=== PATIENT | female | born 1970 | race American Indian/Alaskan Native ===

== ENCOUNTER 2017-06-26 15:13 | Emergency (ER) | payer SELFPAY ==
[2017-06-26 16:26] VITALS: BP 149/80
== END 2017-06-26 18:06 | disposition left against medical advice (07) ==
LOC: ED 15:13
DX: M79.89 Other specified soft tissue disorders (principal); Z53.21 Procedure and treatment not carried out due to patient leaving prior to being seen by health care provider

== ENCOUNTER 2017-08-31 20:34 | Emergency (ER) | payer SELFPAY ==
[2017-08-31 21:55] VITALS: BP 146/90
[2017-08-31] MEDS ORDERED: TORADOL IM ONE (22:09)
--- NOTE | 2017-08-31 22:23 | Emergency Department Report ---
ED Back Pain/Injury HPI - General Chief Complaint: Back Pain/Injury Stated Complaint: BACK PAIN Time Seen by Provider: 08/31/17 22:09 Source: patient Limitations: No Limitations - History of Present Illness Initial Comments: This is a 46-year-old female nontoxic, well nourished in appearance, no acute signs of distress presents to the ED with c/o of acute on chronic lower back pain x5 days. Patient stated that the past 2 days she was moving and developed this pain. 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 Patient states has history of sciatica nerve pain which is similar symptoms as today. Patient states that pain radiates through to her right lower extremity. Patient denies any trauma. Denies any bladder or bowel instability. Denies any fever, chills, nausea, abdominal pain, vomiting, headache, stiff neck, chest pain or shortness of breath. Patient denies any urinary symptoms. Patient denies any numbness or tingling. Patient stated allergies to sulfa. Denies significant past medical history. MD Complaint: back pain -: days(s) (5) Similar Symptoms Previously: Yes Place: work Radiation: right leg Severity: mild Severity scale (0 -10): 8 Quality: aching Consistency: constant Improves With: immobilization, supine, sitting upright Worsens With: movement, walking Context: while lifting, turning/twisting Associated Symptoms: denies other symptoms. denies: confusion, weakness, chest pain, numbness, difficulty walking, cough, difficulty urinating, diaphoresis, incontinence, fever/chills, constipation, headaches, abdominal pain, loss of appetite, malaise, nausea/vomiting, rash, seizure, shortness of breath, syncope - Related Data Previous Rx's Medication Instructions Recorded Last Taken Type Acetaminophen/Codeine 1 tab PO Q6H PRN #25 tab 02/12/14 Unknown Rx [Acetaminophen-Codeine #3 TAB] Cyclobenzaprine [Flexeril 10mg] 10 mg PO TID PRN #30 tablet 02/12/14 Unknown Rx Ibuprofen [Motrin] 600 mg PO Q8H PRN #50 tablet 02/12/14 Unknown Rx Promethazine /Codeine 5 ml PO Q6H PRN #60 ml 01/22/15 Unknown Rx [Phenergan/Codeine 6.25-10 mg/5Ml] Cyclobenzaprine [Flexeril] 10 mg PO QHS PRN #10 tablet 08/31/17 Unknown Rx Ibuprofen [Motrin] 600 mg PO Q8H PRN #30 tablet 08/31/17 Unknown Rx Prednisone [predniSONE 10 mg 10 mg PO .TAPER #1 tab.ds.pk 08/31/17 Unknown Rx (6-Day Pack, 21 Tabs)] Allergies Allergy/AdvReac Type Severity Reaction Status Date / Time Sulfa (Sulfonamide Allergy Unknown Verified 02/12/14 16:41 Antibiotics) ED Review of Systems ROS: Stated complaint: BACK PAIN Other details as noted in HPI Constitutional: denies: chills, fever Eyes: denies: eye pain, eye discharge, vision change ENT: denies: ear pain, throat pain Respiratory: denies: cough, shortness of breath, wheezing Cardiovascular: denies: chest pain, palpitations Endocrine: no symptoms reported Gastrointestinal: denies: abdominal pain, nausea, diarrhea Genitourinary: denies: urgency, dysuria, discharge Musculoskeletal: back pain. denies: joint swelling, arthralgia Skin: denies: rash, lesions Neurological: denies: headache, weakness, paresthesias Psychiatric: denies: anxiety, depression Hematological/Lymphatic: denies: easy bleeding, easy bruising ED Past Medical Hx - Surgical History Additional Surgical History: tubiligation - Social History Smoking Status: Never Smoker Substance Use Type: None - Medications Home Medications: Home Medications Medication Instructions Recorded Confirmed Last Taken Type Acetaminophen/Codeine 1 tab PO Q6H PRN #25 tab 02/12/14 Unknown Rx [Acetaminophen-Codeine #3 TAB] Cyclobenzaprine [Flexeril 10mg] 10 mg PO TID PRN #30 tablet 02/12/14 Unknown Rx Ibuprofen [Motrin] 600 mg PO Q8H PRN #50 tablet 02/12/14 Unknown Rx Promethazine /Codeine 5 ml PO Q6H PRN #60 ml 01/22/15 Unknown Rx [Phenergan/Codeine 6.25-10 mg/5Ml] Cyclobenzaprine [Flexeril] 10 mg PO QHS PRN #10 tablet 08/31/17 Unknown Rx Ibuprofen [Motrin] 600 mg PO Q8H PRN #30 tablet 08/31/17 Unknown Rx Prednisone [predniSONE 10 mg 10 mg PO .TAPER #1 tab.ds.pk 08/31/17 Unknown Rx (6-Day Pack, 21 Tabs)] ED Physical Exam - General Limitations: No Limitations General appearance: alert, in no apparent distress - Head Head exam: Present: atraumatic, normocephalic - Eye Eye exam: Present: normal appearance Pupils: Present: normal accommodation - ENT ENT exam: Present: normal exam, mucous membranes moist - Neck Neck exam: Present: normal inspection, full ROM. Absent: tenderness, meningismus, lymphadenopathy - Respiratory Respiratory exam: Present: normal lung sounds bilaterally. Absent: respiratory distress, wheezes, rales, rhonchi, stridor, chest wall tenderness, accessory muscle use, decreased breath sounds, prolonged expiratory - Cardiovascular Cardiovascular Exam: Present: regular rate, normal rhythm, normal heart sounds. Absent: bradycardia, tachycardia, irregular rhythm, systolic murmur, diastolic murmur, rubs, gallop - GI/Abdominal GI/Abdominal exam: Present: soft, normal bowel sounds. Absent: distended, tenderness, guarding, rebound, rigid, diminished bowel sounds - Rectal Rectal exam: Present: deferred - Extremities Exam Extremities exam: Present: normal inspection, full ROM, normal capillary refill. Absent: tenderness - Back Exam Back exam: Present: normal inspection, full ROM, paraspinal tenderness (lumbar region). Absent: tenderness, CVA tenderness (R), CVA tenderness (L), muscle spasm, vertebral tenderness, rash noted - Expanded Back Exam Expanded Back exam: Absent: saddle anesthesia Back exam: Negative Straight Leg Raising: Left, Right - Neurological Exam Neurological exam: Present: alert, oriented X3, normal gait - Psychiatric Psychiatric exam: Present: normal affect, normal mood - Skin Skin exam: Present: warm, dry, intact, normal color. Absent: rash ED Course Vital Signs 08/31/17 21:52 Temperature 98.3 F Pulse Rate 67 Respiratory 14 Rate Blood Pressure 146/90 O2 Sat by Pulse 100 Oximetry - Reevaluation(s) Reevaluation #1: 08/31/17 22:22 Patient is speaking in full sentences with no signs of distress noted. ED Medical Decision Making - Medical Decision Making This is a 46-year-old female that presents with low back strain. Patient is stable was examined by me. There is no spinal tenderness. There is no cauda equina syndrome during examination. No bladder or bowel instability. Patient received Toradol 60 mg IM in the ED which preceded his symptoms has resolved and subsided. Patient is discharged with muscle relaxant and Motrin. Patient was instructed not to operate any machinery while taking muscle relaxant as they cause her drowsiness. Patient was referred to Follow-up with a primary care doctor in 3-5 days or if symptoms worsen and continue return to emergency room as soon as possible. At time of discharge, the patient does not seem toxic or ill in appearance. No acute signs of distress noted. Patient agrees to discharge treatment plan of care. No further questions noted by the patient. This chart is dictated with using [employer] Critical care attestation.: If time is entered above; I have spent that time in minutes in the direct care of this critically ill patient, excluding procedure time. ED Disposition Clinical Impression: Low back strain Qualifiers: Encounter type: initial encounter Qualified Code(s): S39.012A - Strain of muscle, fascia and tendon of lower back, initial encounter Disposition: TO HOME OR SELFCARE Is pt being admited?: No Does the pt Need Aspirin: No Condition: Stable Instructions: Ibuprofen (By mouth), Prednisone (By mouth), Cyclobenzaprine (By mouth), Low Back Strain (ED) Additional Instructions: Follow-up with a primary care doctor in 3-5 days or if symptoms worsen and continue return to emergency room as soon as possible. Prescriptions: Cyclobenzaprine [Flexeril] 10 mg PO QHS PRN #10 tablet PRN Reason: Muscle Spasm Ibuprofen [Motrin] 600 mg PO Q8H PRN #30 tablet PRN Reason: Pain Prednisone [predniSONE 10 mg (6-Day Pack, 21 Tabs)] 10 mg PO .TAPER #1 tab.ds.pk Referrals: PRIMARY CARE, [Primary Care Provider] - 3-5 Days ESTEFANI CAI MD [Staff Physician] - 3-5 Days [facility] [Outside] - 3-5 Days [facility] [Outside] - 3-5 Days Forms: Work/School Release Form(ED)
== END 2017-08-31 22:35 | disposition home or self-care (01) ==
LOC: ED 20:34
DX: S39.012A Strain of muscle, fascia and tendon of lower back, initial encounter (principal); Z98.51 Tubal ligation status; Z88.2 Allergy status to sulfonamides; X58.XXXA Exposure to other specified factors, initial encounter; Y93.89 Activity, other specified; Y92.59 Other trade areas as the place of occurrence of the external cause; Y99.8 Other external cause status
CPT/HCPCS: 96372; 99282; J1885

== ENCOUNTER 2018-08-04 11:17 | Emergency (ER) | payer SELFPAY ==
--- NOTE | 2018-08-04 11:31 | Emergency Department Report ---
Blank Doc - Documentation Documentation: This is a 47-year-old female that presents with midsternum chest pain that is intermittent with headache. Denies any head trauma. Denies any SOB or radiation of pain. Denies any other complaints. Denies worst headache or thunderclap headache. This initial assessment/diagnostic orders/clinical plan/treatment(s) is/are subject to change based on patient's health status, clinical progression and re- assessment by fellow clinical providers in the ED. Further treatment and workup at subsequent clinical providers discretion. Patient/guardians urged not to elope from the ED as their condition may be serious if not clinically assessed and managed. Initial orders include: 1- Patient sent to [facility] for further evaluation and treatment. 2- EKG 3- CXR 4- Labs
[2018-08-04 12:20] LABS: Basophils % (Auto) 0.7 % (0.0-1.8); Eosinophils # (Auto) 0.1 K/mm3 (0.0-0.4); Hematocrit 41.4 % (30.3-42.9); Hemoglobin 13.9 gm/dl (10.1-14.3); Mean Corpuscular HGB Conc 34 % (30-34); Mean Corpuscular Volume 88 fl (79-97); Monocytes # (Auto) 0.4 K/mm3 (0.0-0.8); Monocytes % (Auto) 8.3 % (0.0-7.3); Platelet Count 235 K/mm3 (140-440); Red Blood Count 4.73 M/mm3 (3.65-5.03); Red Cell Distribution Width 14.1 % (13.2-15.2)
[2018-08-04 12:41] LABS: Alanine Aminotransferase 11 units/L (7-56); Albumin 3.3 g/dL (3.9-5); BUN/Creatinine Ratio 14; Blood Urea Nitrogen 14 mg/dL (7-17); Calcium 9.1 mg/dL (8.4-10.2); Hemolysis Index 11
[2018-08-04 12:42] LABS: Bilirubin,Direct < 0.2 mg/dL (0-0.2)
[2018-08-04] MEDS ORDERED: PEPCID IV ONE (14:15)
[2018-08-04] MEDS ORDERED: TORADOL IV ONE (14:15)
[2018-08-04] MEDS ORDERED: REGLAN IV ONE (14:16)
[2018-08-04] MEDS ORDERED: XYLOCAINE TOPICAL 4% TP ONE (14:16)
--- NOTE | 2018-08-04 14:19 | Emergency Department Report ---
ED General Adult HPI - General Chief complaint: Headache Stated complaint: HEADACHE/CHEST PAIN Time Seen by Provider: 08/04/18 11:29 Source: patient, RN notes reviewed Mode of arrival: Ambulatory Limitations: No Limitations - History of Present Illness Initial comments: This is a 47-year-old female. The patient is not known to this provider previously. The patient does not have a primary care doctor. She denies chronic medical conditions. She presents to the ER with a primary complaint of headache. The headache is frontal bitemporal. The headache has been present since 6:00 this morning. The headache is not sudden or thunderclap in nature. It did not reach maximal intensity within an hour. There is no vomiting, neck pain, stiffness, photophobia. There is no focal extremity weakness or numbness. The patient states she gets headaches at least once or twice a month. 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 She endorses a secondary complaint of chest tightness. The chest tightness is central. It is now resolved. It started earlier on today. It did not radiate to the back, arms and neck. There is no vomiting, diaphoresis. There is no shortness of breath. No recent aspirin use. No DVT or pulmonary embolus risk factors. Patient is asking to go home. -: Gradual Location: head, chest Radiation: non-radiation Quality: aching Consistency: other Improves with: other - Related Data Previous Rx's Medication Instructions Recorded Last Taken Type Acetaminophen/Codeine 1 tab PO Q6H PRN #25 tab 02/12/14 Unknown Rx [Acetaminophen-Codeine #3 TAB] Cyclobenzaprine [Flexeril 10mg] 10 mg PO TID PRN #30 tablet 02/12/14 Unknown Rx Ibuprofen [Motrin] 600 mg PO Q8H PRN #50 tablet 02/12/14 Unknown Rx Promethazine /Codeine 5 ml PO Q6H PRN #60 ml 01/22/15 Unknown Rx [Phenergan/Codeine 6.25-10 mg/5Ml] Cyclobenzaprine [Flexeril] 10 mg PO QHS PRN #10 tablet 08/31/17 Unknown Rx Ibuprofen [Motrin] 600 mg PO Q8H PRN #30 tablet 08/31/17 Unknown Rx Prednisone [predniSONE 10 mg 10 mg PO .TAPER #1 tab.ds.pk 08/31/17 Unknown Rx (6-Day Pack, 21 Tabs)] Acetaminophen [Non-Aspirin Extra 500 mg PO Q6HR PRN #30 tablet 08/04/18 Unknown Rx Strength] Famotidine [Pepcid] 20 mg PO BID #10 tablet 08/04/18 Unknown Rx Ibuprofen [Motrin] 600 mg PO Q8H PRN #30 tablet 08/04/18 Unknown Rx Metoclopramide [Reglan] 10 mg PO QID PRN #30 tablet 08/04/18 Unknown Rx Allergies Allergy/AdvReac Type Severity Reaction Status Date / Time Sulfa (Sulfonamide Allergy Unknown Verified 02/12/14 16:41 Antibiotics) ED Review of Systems ROS: Stated complaint: HEADACHE/CHEST PAIN Other details as noted in HPI Constitutional: denies: fever, malaise Eyes: denies: eye discharge, vision change ENT: denies: epistaxis, congestion Respiratory: denies: cough Cardiovascular: chest pain Gastrointestinal: denies: abdominal pain, nausea, vomiting Genitourinary: denies: dysuria Musculoskeletal: denies: back pain Skin: denies: lesions Neurological: headache. denies: weakness, numbness, paresthesias, confusion Psychiatric: denies: depression ED Past Medical Hx - Past Medical History Previous Medical History?: No - Surgical History Past Surgical History?: No Additional Surgical History: tubiligation - Social History Smoking Status: Never Smoker Substance Use Type: None - Medications Home Medications: Home Medications Medication Instructions Recorded Confirmed Last Taken Type Acetaminophen/Codeine 1 tab PO Q6H PRN #25 tab 02/12/14 Unknown Rx [Acetaminophen-Codeine #3 TAB] Cyclobenzaprine [Flexeril 10mg] 10 mg PO TID PRN #30 tablet 02/12/14 Unknown Rx Ibuprofen [Motrin] 600 mg PO Q8H PRN #50 tablet 02/12/14 Unknown Rx Promethazine /Codeine 5 ml PO Q6H PRN #60 ml 01/22/15 Unknown Rx [Phenergan/Codeine 6.25-10 mg/5Ml] Cyclobenzaprine [Flexeril] 10 mg PO QHS PRN #10 tablet 08/31/17 Unknown Rx Ibuprofen [Motrin] 600 mg PO Q8H PRN #30 tablet 08/31/17 Unknown Rx Prednisone [predniSONE 10 mg 10 mg PO .TAPER #1 tab.ds.pk 08/31/17 Unknown Rx (6-Day Pack, 21 Tabs)] Acetaminophen [Non-Aspirin Extra 500 mg PO Q6HR PRN #30 tablet 08/04/18 Unknown Rx Strength] Famotidine [Pepcid] 20 mg PO BID #10 tablet 08/04/18 Unknown Rx Ibuprofen [Motrin] 600 mg PO Q8H PRN #30 tablet 08/04/18 Unknown Rx Metoclopramide [Reglan] 10 mg PO QID PRN #30 tablet 08/04/18 Unknown Rx ED Physical Exam - General Limitations: No Limitations General appearance: alert, in no apparent distress - Head Head exam: Present: atraumatic, normocephalic - Eye Eye exam: Present: normal appearance, PERRL, EOMI, other (visual acuity intact to finger counting, color perception, reading at a close distance). Absent: nystagmus - ENT ENT exam: Present: normal exam, normal orophraynx, mucous membranes moist, TM's normal bilaterally, normal external ear exam - Neck Neck exam: Present: normal inspection, full ROM. Absent: tenderness, meningismus - Respiratory Respiratory exam: Present: normal lung sounds bilaterally. Absent: respiratory distress - Cardiovascular Cardiovascular Exam: Present: regular rate, normal rhythm, normal heart sounds. Absent: bradycardia, tachycardia, irregular rhythm, systolic murmur, diastolic murmur, rubs, gallop - GI/Abdominal GI/Abdominal exam: Present: soft. Absent: distended, tenderness, guarding, rebound, rigid, pulsatile mass - Extremities Exam Extremities exam: Present: normal inspection, full ROM, other (2+ pulses noted in the bilateral upper, lower extremities. Compartments soft. No long bony ten derness. The pelvis is stable.). Absent: pedal edema, joint swelling, calf tenderness - Back Exam Back exam: Present: normal inspection, full ROM. Absent: tenderness, CVA tenderness (R), CVA tenderness (L), paraspinal tenderness, vertebral tenderness - Neurological Exam Neurological exam: Present: alert, oriented X3, normal gait (there is no pass pointing. There is normal [id number]. There is negative pronator drift. There is normal gait. There is negative Romberg examination.), other (Extraocular movements intact. Tongue midline. No facial droop. Facial sensation intact to light touch in the V1, V2, V3 distribution bilaterally. 5 and 5 strength in 4 extremities.. Sensation is intact to light touch in 4 extremities.). Absent: motor sensory deficit - Psychiatric Psychiatric exam: Present: normal affect, normal mood - Skin Skin exam: Present: warm, dry, intact, normal color. Absent: rash ED Course Vital Signs 08/04/18 08/04/18 08/04/18 11:23 12:20 14:54 Temperature 98.3 F 98.6 F Pulse Rate 83 64 Respiratory 18 16 18 Rate Blood Pressure 149/98 Blood Pressure 146/91 [Right] O2 Sat by Pulse 100 98 Oximetry ED Medical Decision Making - Lab Data Result diagrams: 08/04/18 12:00 08/04/18 12:00 Vital Signs 08/04/18 08/04/18 08/04/18 11:23 12:20 14:54 Temperature 98.3 F 98.6 F Pulse Rate 83 64 Respiratory 18 16 18 Rate Blood Pressure 149/98 Blood Pressure 146/91 [Right] O2 Sat by Pulse 100 98 Oximetry Labs 08/04/18 08/04/18 08/04/18 12:00 12:00 12:00 WBC 5.2 RBC 4.73 Hgb 13.9 Hct 41.4 MCV 88 MCH 29 MCHC 34 RDW 14.1 Plt Count 235 Lymph % (Auto) 39.0 H [place] % (Auto) 8.3 H Eos % (Auto) 1.0 Baso % (Auto) 0.7 Lymph # 2.0 [place] # 0.4 Eos # 0.1 Baso # 0.0 Seg Neutrophils % 51.0 Seg Neutrophils # 2.7 Sodium 138 Potassium 3.8 Chloride 102.6 Carbon Dioxide 25 Anion Gap 14 BUN 14 Creatinine 1.0 Estimated GFR > 60 BUN/Creatinine Ratio 14 Glucose 120 H Calcium 9.1 Total Bilirubin 0.20 Direct Bilirubin < 0.2 AST 12 ALT 11 Alkaline Phosphatase 81 Troponin T Total Protein 6.9 Albumin 3.3 L Albumin/Globulin Ratio 0.9 Lipase 47 HCG, Qual Negative 08/04/18 Unknown WBC RBC Hgb Hct MCV MCH MCHC RDW Plt Count Lymph % (Auto) [place] % (Auto) Eos % (Auto) Baso % (Auto) Lymph # [place] # Eos # Baso # Seg Neutrophils % Seg Neutrophils # Sodium Potassium Chloride Carbon Dioxide Anion Gap BUN Creatinine Estimated GFR BUN/Creatinine Ratio Glucose Calcium Total Bilirubin Direct Bilirubin AST ALT Alkaline Phosphatase Troponin T < 0.010 Total Protein Albumin Albumin/Globulin Ratio Lipase HCG, Qual - EKG Data -: EKG Interpreted by Me EKG shows normal: sinus rhythm, axis, intervals, QRS complexes, ST-T waves Rate: normal - EKG Data When compared to previous EKG there are: no significant change Interpretation: no acute changes 08/04/18 16:02 EKG #1 shows a normal sinus rhythm, 80 bpm, normal axis, normal intervals, unremarkable EKG, not consistent with ST elevation myocardial infarction. EKG #2 was unchanged from prior. Both EKGs appeared to be unchanged from prior EKG. - Radiology Data Radiology results: report reviewed, image reviewed X-ray of the chest is negative for acute disease - Medical Decision Making Differential diagnosis, including but not limited to, migraine headache, tension headache, cluster headache, pneumonia, GERD, gastritis, hiatal hernia, acute coronary syndrome, sleep deprivation Assessment and plan: 47-year-old female with 2 complaints Complaint #1, headache: Patient has a GCS of 15, with an NIH score of 0. She walks with a steady gait. She looks quite comfortable. Her headache is improved after supportive and symptomatic therapy. Headache by historical features does not appear to have any red flag symptoms or signs for ischemic or hemorrhagic stroke, meningitis, or space occupying lesion. Suspected sleep deprivation as likely etiologic factor. We discussed proper sleep hygiene. Complaint #2, chest pain: No pulmonary embolus or DVT risk factors, low risk by well's criteria, low risk by SARA score, low risk by heart score, EKG unchanged 2, troponin negative, perc negative Patient endorsed that her chest pain resolved prior to my interviewing her. The patient does not appear to have an emergent medical condition at this time, the patient is medically suitable to be discharged to follow-up as an outpatient. Critical care attestation.: If time is entered above; I have spent that time in minutes in the direct care of this critically ill patient, excluding procedure time. ED Disposition Clinical Impression: History of headache, History of chest pain Disposition: TO HOME OR SELFCARE Is pt being admited?: No Does the pt Need Aspirin: No Condition: Stable Additional Instructions: Make certain to get at least 7-8 hours of good quality on interrupted sleep every day. Make certain to minimize distractions while sleeping. Do not consume caffeinated beverages before sleeping. Minimize exposure to screen exposure, cell phones, computers. Take the pain medications as needed/directed. Follow-up with the primary care doctor or cardiology doctor 5 days for complaint of chest pain. Return to the emergency room right away with new, worsened or different symptoms, or symptoms not present on the initial ER evaluation. [facility]: [facility] [Other] - 3-5 Days [facility] [Provider Group] - 3-5 Days
--- NOTE | 2018-08-04 14:50 | XRay Report ---
ROUTINE CHEST, TWO VIEWS: HISTORY: chest pain. The trachea, heart, mediastinal contour, lung lang and bony thorax are unremarkable. IMPRESSION: Unremarkable chest x-ray.
[2018-08-04 17:27] VITALS: BP 135/82
== END 2018-08-04 16:30 | disposition home or self-care (01) ==
LOC: ED 11:17
DX: R51 Headache (principal); R07.89 Other chest pain; Z88.2 Allergy status to sulfonamides; Z98.51 Tubal ligation status
CPT/HCPCS: 36415; 71046; 80048; 80076; 83690; 84484; 84703; 85025; 93005; 93010; 96374; 96375; 99284; J1885; J2765

== ENCOUNTER 2019-03-29 07:44 | Emergency (ER) | payer OTHER ==
[2019-03-29] MEDS ORDERED: cloNIDine 0.1 MG TAB PO ONE (10:05)
--- NOTE | 2019-03-29 10:07 | Emergency Department Report ---
ED Recheck HPI - General Chief Complaint: High BP Stated Complaint: HBP Time Seen by Provider: 03/29/19 09:14 Source: patient Mode of arrival: Ambulatory Limitations: No Limitations - History of Present Illness Initial Comments: 48 yo was sent to ER today because bp was elevated at work. on provider exam she is texting on cell phone. no cp. no sob. no headache. no hx of htn. on no home meds. no pmh ambulatory non ill non toxic no focal neuro deficit Symptoms Since Prior Visit: no new symptoms Associated Symptoms: none - Related Data Previous Rx's Medication Instructions Recorded Last Taken Type Acetaminophen/Codeine 1 tab PO Q6H PRN #25 tab 02/12/14 Unknown Rx [Acetaminophen-Codeine #3 TAB] Cyclobenzaprine [Flexeril 10mg] 10 mg PO TID PRN #30 tablet 02/12/14 Unknown Rx Ibuprofen [Motrin] 600 mg PO Q8H PRN #50 tablet 02/12/14 Unknown Rx Promethazine /Codeine 5 ml PO Q6H PRN #60 ml 01/22/15 Unknown Rx [Phenergan/Codeine 6.25-10 mg/5Ml] Cyclobenzaprine [Flexeril] 10 mg PO QHS PRN #10 tablet 08/31/17 Unknown Rx Ibuprofen [Motrin] 600 mg PO Q8H PRN #30 tablet 08/31/17 Unknown Rx Prednisone [predniSONE 10 mg 10 mg PO .TAPER #1 tab.ds.pk 08/31/17 Unknown Rx (6-Day Pack, 21 Tabs)] Acetaminophen [Non-Aspirin Extra 500 mg PO Q6HR PRN #30 tablet 08/04/18 Unknown Rx Strength] Famotidine [Pepcid] 20 mg PO BID #10 tablet 08/04/18 Unknown Rx Ibuprofen [Motrin] 600 mg PO Q8H PRN #30 tablet 08/04/18 Unknown Rx Metoclopramide [Reglan] 10 mg PO QID PRN #30 tablet 08/04/18 Unknown Rx Allergies Allergy/AdvReac Type Severity Reaction Status Date / Time Sulfa (Sulfonamide Allergy Unknown Verified 02/12/14 16:41 Antibiotics) ED Review of Systems ROS: Stated complaint: HBP Other details as noted in HPI Comment: All other systems reviewed and negative ED Past Medical Hx - Past Medical History Previous Medical History?: No - Surgical History Past Surgical History?: Yes Additional Surgical History: tubiligation - Family History Family history: other (mom/dad htn) - Social History Smoking Status: Never Smoker - Medications Home Medications: Home Medications Medication Instructions Recorded Confirmed Last Taken Type Acetaminophen/Codeine 1 tab PO Q6H PRN #25 tab 02/12/14 Unknown Rx [Acetaminophen-Codeine #3 TAB] Cyclobenzaprine [Flexeril 10mg] 10 mg PO TID PRN #30 tablet 02/12/14 Unknown Rx Ibuprofen [Motrin] 600 mg PO Q8H PRN #50 tablet 02/12/14 Unknown Rx Promethazine /Codeine 5 ml PO Q6H PRN #60 ml 01/22/15 Unknown Rx [Phenergan/Codeine 6.25-10 mg/5Ml] Cyclobenzaprine [Flexeril] 10 mg PO QHS PRN #10 tablet 08/31/17 Unknown Rx Ibuprofen [Motrin] 600 mg PO Q8H PRN #30 tablet 08/31/17 Unknown Rx Prednisone [predniSONE 10 mg 10 mg PO .TAPER #1 tab.ds.pk 08/31/17 Unknown Rx (6-Day Pack, 21 Tabs)] Acetaminophen [Non-Aspirin Extra 500 mg PO Q6HR PRN #30 tablet 08/04/18 Unknown Rx Strength] Famotidine [Pepcid] 20 mg PO BID #10 tablet 08/04/18 Unknown Rx Ibuprofen [Motrin] 600 mg PO Q8H PRN #30 tablet 08/04/18 Unknown Rx Metoclopramide [Reglan] 10 mg PO QID PRN #30 tablet 08/04/18 Unknown Rx ED Physical Exam - General Limitations: No Limitations General appearance: alert, in no apparent distress - Head Head exam: Present: atraumatic, normocephalic - Eye Eye exam: Present: normal appearance - ENT ENT exam: Present: mucous membranes moist - Neck Neck exam: Present: normal inspection - Respiratory Respiratory exam: Present: normal lung sounds bilaterally. Absent: respiratory distress - Cardiovascular Cardiovascular Exam: Present: regular rate, normal rhythm. Absent: systolic murmur, diastolic murmur, rubs, gallop - GI/Abdominal GI/Abdominal exam: Present: soft, normal bowel sounds - Extremities Exam Extremities exam: Present: normal inspection - Back Exam Back exam: Present: normal inspection - Neurological Exam Neurological exam: Present: alert, oriented X3 - Psychiatric Psychiatric exam: Present: normal affect, normal mood - Skin Skin exam: Present: warm, dry, intact, normal color. Absent: rash ED Course Vital Signs 03/29/19 03/29/19 07:55 10:39 Temperature 98.5 F Pulse Rate 81 80 Respiratory 16 Rate Blood Pressure 175/104 170/102 O2 Sat by Pulse 99 Oximetry ED Recheck MDM - Core Measures Measure Exclusions: not indicated - Medical Decision Making Vital Signs 03/29/19 03/29/19 07:55 10:39 Temperature 98.5 F Pulse Rate 81 80 Respiratory 16 Rate Blood Pressure 175/104 170/102 O2 Sat by Pulse 99 Oximetry pt has no hx and no symptoms educated on leal diet and monitoring of bp she is being dc home with pcp follow up Critical care attestation.: If time is entered above; I have spent that time in minutes in the direct care of this critically ill patient, excluding procedure time. ED Disposition Clinical Impression: Elevated blood pressure reading Disposition: DC-01 TO HOME OR SELFCARE Is pt being admited?: No Does the pt Need Aspirin: No Condition: Stable Instructions: How to Take a Blood Pressure (ED), Low Sodium Diet (ED), Hypertension (ED) Additional Instructions: low salt low fat diet drink a lot of water monitor and record bp as we discussed follow up with pcp referral below avoid alcohol Referrals: JAH VACA MD [Staff Physician] - 3-5 Days Time of Disposition: 10:05
[2019-03-29 10:40] VITALS: BP 170/102
== END 2019-03-29 10:46 | disposition home or self-care (01) ==
LOC: ED 07:44
DX: R03.0 Elevated blood-pressure reading, without diagnosis of hypertension (principal); Z98.51 Tubal ligation status; Z79.899 Other long term (current) drug therapy; Z88.2 Allergy status to sulfonamides